=== PATIENT | male | born 1990 | race Caucasian/White ===

== ENCOUNTER 2022-06-01 17:35 | Emergency (ER) | payer SELFPAY ==
[~2022-06-01] VITALS: Ht 175.3 cm; Wt 91.2 kg
[2022-06-01 17:35] VITALS: BP_SYST 133
--- NOTE | 2022-06-01 17:55 | NUR ---
Patient to ER bed H1 to gown for evaluation. Side rails up.
--- NOTE | 2022-06-01 18:01 | NUR ---
PT BIB SELF AWAKE AND ALERT, AOX4. NO SOB OR DISTRESS. PERRLA. PT C/O CHEST PAIN STARTING TODAY AT 1200. PAIN 5/10. PT DENIES N/V, AND DIAHREA. VSS.
--- NOTE | 2022-06-01 18:35 | NUR ---
PT WENT TO RADIOLOGY FOR CXR
--- NOTE | 2022-06-01 18:38 | NUR ---
DR CEBALLOS AT BEDSIDE
--- NOTE | 2022-06-01 19:14 | NUR ---
Report rec from Valarie ZAIDI. Pt A&O x4, and following simple commands. Pt denies discomfort at this time. VSS. Safety precautions in place and connected to monitor.
[2022-06-01 19:25] LABS: BASOPHILS # (AUTO) 0.1 K/uL (0.0-0.2); BASOPHILS % (AUTO) 1.6 % (0.0-2.0); EOSINOPHILS # (AUTO) 0.2 K/uL (0.0-0.4); EOSINOPHILS % (AUTO) 3.2 % (0.0-4.0); HEMATOCRIT 44.5 % (36-54); LYMPHOCYTES # (AUTO) 2.1 K/uL (1.0-5.5); LYMPHOCYTES % (AUTO) 31.7 % (20.5-51.5); MEAN CORPUSCULAR VOLUME 89 fL (79.0-98.0); MONOCYTES # (AUTO) 0.5 K/uL (0.0-1.0); MONOCYTES % (AUTO) 7.1 % (1.7-9.3); NEUTROPHILS # (AUTO) 3.7 K/uL (1.8-7.7); NEUTROPHILS % (AUTO) 56.4 % (40.0-70.0); PLATELET COUNT (AUTO) 131 K/uL (130-430); RED BLOOD CELL COUNT(AUTO) 4.99 MIL/uL (4.2-6.2); WHITE BLOOD COUNT (AUTO) 6.6 K/uL (4.8-10.8)
[2022-06-01 19:38] LABS: ANION GAP 10 (5-15); CALCIUM 9.5 mg/dL (8.4-11.0); CHLORIDE 102 mmol/L (98-107); GFR AFRICAN AMERICAN 127 mL/min (>90); GLUCOSE 89 mg/dL (70-99); POTASSIUM 3.1 mmol/L (3.5-5.1); UREA NITROGEN, BLOOD 13 mg/dL (8-21)
[2022-06-01 19:51] LABS: ALANINE AMINOTRANSFERASE 32 U/L (12-78); ALBUMIN 3.9 g/dL (3.4-4.8); ASPARTATE AMINOTRANSFERASE 19 U/L (10-37); TOTAL BILIRUBIN 0.4 mg/dL (0.0-1.0)
[2022-06-01 21:40] VITALS: BP_SYST 129
--- NOTE | 2022-06-01 21:40 | NUR ---
Patient given written and verbal discharge instructions and verbalizes understanding. ER Dr. Newby discussed with patient the results and treatment provided. Patient in stable condition. ID arm band removed. Patient educated on pain management and to follow up with PMD. Pain Scale 0. Opportunity for questions provided and answered. Medication side effect fact sheet provided.
== END 2022-06-01 21:40 | disposition home or self-care (01) ==
LOC: SED 17:35
DX: R07.9 Chest pain, unspecified (principal); E78.5 Hyperlipidemia, unspecified; Z79.899 Other long term (current) drug therapy
CPT/HCPCS: 36415; 71045; 80053; 84484; 85025; 99285

== ENCOUNTER 2022-10-10 12:20 | Emergency (ER) | payer OTHER ==
[~2022-10-10] VITALS: Ht 175.3 cm; Wt 85.3 kg
[2022-10-10 12:20] VITALS: BP_SYST 150
--- NOTE | 2022-10-10 12:20 | NUR ---
BROUGHT BACK TO BED #7 AND TRIAGED. REPORT GIVEN TO OG
--- NOTE | 2022-10-10 12:25 | NUR ---
Pt presents to the ER from home. Chief complaint light headed and dizziness occurred approxiamately 2 hours ago. Pt states was moving furniture after having a protein breakfast; began to feel dizzy sat down. Denies falling, denies trauma denies LOC. Pt is aaox3 skin intact, speaking full sentences. Pt states history of antidepressant treatment for anxiety have been ineffective with multiple uncomfortable side effects. Pt states feeling much better while lying down.
[2022-10-10] MEDS ORDERED: LORazepam 1 MG TABLET PO ONE (12:45)
--- NOTE | 2022-10-10 12:45 | NUR ---
ER at bedside examining patient.
--- NOTE | 2022-10-10 12:49 | NUR ---
Patient given written and verbal discharge instructions and verbalizes understanding. ER MD discussed with patient the results and treatment provided. Patient in stable condition. ID arm band removed. Patient educated on pain management and to follow up with PMD. Opportunity for questions provided and answered. Medication side effect fact sheet provided.
[2022-10-10 13:03] VITALS: BP_SYST 138
== END 2022-10-10 12:49 | disposition home or self-care (01) ==
LOC: SED 12:20
DX: F41.9 Anxiety disorder, unspecified (principal); R42 Dizziness and giddiness; E78.5 Hyperlipidemia, unspecified; Z79.899 Other long term (current) drug therapy
CPT/HCPCS: 99283

== ENCOUNTER 2023-11-04 15:25 | Emergency (ER) | payer OTHER ==
[~2023-11-04] VITALS: Ht 175.3 cm; Wt 93.4 kg
[2023-11-04 15:25] VITALS: BP_SYST 137; PULSE 89; RESP 16; TEMP 97.2; O2SAT 98
[2023-11-04] MEDS: LORazepam 1 MG TABLET PO ONE (15:52)
[2023-11-04 16:09] LABS: BASOPHILS % (AUTO) 0.6 % (0.0-2.0); EOSINOPHILS # (AUTO) 0.1 K/uL (0.0-0.4); EOSINOPHILS % (AUTO) 1.6 % (0.0-4.0); HEMATOCRIT 44.7 % (36-54); HEMOGLOBIN 15.8 g/dL (14.0-18.0); LYMPHOCYTES # (AUTO) 1.9 K/uL (1.0-5.5); LYMPHOCYTES % (AUTO) 34.4 % (20.5-51.5); MEAN CORPUSCULAR HEMOGLOBIN 32 pg (27-31); MEAN CORPUSCULAR HGB CONC 35 % (32-36); MEAN CORPUSCULAR VOLUME 90 fL (79.0-98.0); MONOCYTES # (AUTO) 0.4 K/uL (0.0-1.0); MONOCYTES % (AUTO) 6.9 % (1.7-9.3); NEUTROPHILS # (AUTO) 3.1 K/uL (1.8-7.7); NEUTROPHILS % (AUTO) 56.5 % (40.0-70.0); PLATELET COUNT (AUTO) 142 K/uL (130-430); RED BLOOD CELL COUNT(AUTO) 4.97 MIL/uL (4.2-6.2); RED CELL DISTRIBUTION WIDTH 12.5 % (9.0-15.0); WHITE BLOOD COUNT (AUTO) 5.6 K/uL (4.8-10.8)
[2023-11-04 16:36] LABS: ANION GAP 9 (5-15); CALCIUM 9.2 mg/dL (8.4-11.0); CARBON DIOXIDE 26 mmol/L (23-29); CHLORIDE 105 mmol/L (98-107); CREATININE 0.91 mg/dL (0.55-1.30); GFR AFRICAN AMERICAN 124 mL/min (>90); GLUCOSE 100 mg/dL (74-106); POTASSIUM 3.5 mmol/L (3.5-5.1); SODIUM SERUM 140 mmol/L (136-145); UREA NITROGEN, BLOOD 11 mg/dL (8-21)
[2023-11-04 16:41] LABS: GFR NON AFRICAN-AMERICAN 103 mL/min (>90)
[2023-11-04 16:50] LABS: THYROID STIMULATING HORMONE 1.46 uIu/mL (0.34-4.82)
[2023-11-04 17:06] VITALS: BP_SYST 137; PULSE 89; RESP 16; TEMP 97.2; O2SAT 98
== END 2023-11-04 17:08 | disposition home or self-care (01) ==
LOC: SED 15:25
DX: R00.2 Palpitations (principal); F41.9 Anxiety disorder, unspecified; Z79.899 Other long term (current) drug therapy
CPT/HCPCS: 36415; 80048; 83735; 84443; 84484; 85025; 85379; 93005; 99284

== ENCOUNTER 2024-02-22 10:21 | Emergency (ER) | payer OTHER ==
[~2024-02-22] VITALS: Ht 175.3 cm; Wt 96.6 kg
[2024-02-22 10:26] VITALS: BP_SYST 137; PULSE 76; RESP 17; TEMP 97.7; O2SAT 95
[2024-02-22 10:49] LABS: BASOPHILS % (AUTO) 0.3 % (0.0-2.0); EOSINOPHILS # (AUTO) 0.1 K/uL (0.0-0.4); EOSINOPHILS % (AUTO) 0.7 % (0.0-4.0); HEMATOCRIT 43.2 % (36-54); HEMOGLOBIN 14.7 g/dL (14.0-18.0); LYMPHOCYTES # (AUTO) 2.2 K/uL (1.0-5.5); LYMPHOCYTES % (AUTO) 26.5 % (20.5-51.5); MEAN CORPUSCULAR HEMOGLOBIN 31 pg (27-31); MEAN CORPUSCULAR HGB CONC 34 % (32-36); MEAN CORPUSCULAR VOLUME 91 fL (79.0-98.0); MONOCYTES # (AUTO) 0.6 K/uL (0.0-1.0); MONOCYTES % (AUTO) 6.9 % (1.7-9.3); NEUTROPHILS # (AUTO) 5.4 K/uL (1.8-7.7); NEUTROPHILS % (AUTO) 65.6 % (40.0-70.0); PLATELET COUNT (AUTO) 139 K/uL (130-430); RED BLOOD CELL COUNT(AUTO) 4.76 MIL/uL (4.2-6.2); RED CELL DISTRIBUTION WIDTH 12.9 % (9.0-15.0); WHITE BLOOD COUNT (AUTO) 8.2 K/uL (4.8-10.8)
[2024-02-22] MEDS: ASPIRIN 81 MG TAB.CHEW PO ONE (10:59)
[2024-02-22 11:12] LABS: ANION GAP 12 (5-15); CALCIUM 9.7 mg/dL (8.4-11.0); CARBON DIOXIDE 25 mmol/L (23-29); CHLORIDE 105 mmol/L (98-107); CREATININE 0.94 mg/dL (0.55-1.30); GFR AFRICAN AMERICAN 120 mL/min (>90); GFR NON AFRICAN-AMERICAN 99 mL/min (>90); GLUCOSE 117 mg/dL (74-106); POTASSIUM 3.2 mmol/L (3.5-5.1); SODIUM SERUM 142 mmol/L (136-145); UREA NITROGEN, BLOOD 9 mg/dL (8-21)
[2024-02-22] MEDS ORDERED: SODI126M NS (11:33)
[2024-02-22 11:40] VITALS: BP_SYST 123; PULSE 76; RESP 17; TEMP 97.7; O2SAT 95
== END 2024-02-22 11:37 | disposition home or self-care (01) ==
LOC: SED 10:21
DX: R07.9 Chest pain, unspecified (principal); R06.02 Shortness of breath
CPT/HCPCS: 36415; 71045; 80048; 83880; 84484; 85025; 93005; 99285